=== PATIENT | female | born 1995 | race African-American/Black ===

== ENCOUNTER 2017-05-13 06:12 | Inpatient (IN) ==
[2017-05-13] MEDS ORDERED: ONDANSETRON 4 MG/2 ML VIAL IV PRN (06:33)
[2017-05-13] MEDS ORDERED: MEPERIDINE 50 MG/1 ML VIAL IV PRN (06:33)
[2017-05-13] MEDS ORDERED: ACETAMINOPHEN 325 MG TABLET PO PRN (06:33)
[2017-05-13] MEDS ORDERED: OXYTOCIN/LR 20 UNIT/1,000 ML BAG IV SCH (07:00)
[2017-05-13] MEDS ORDERED: LACTATED RINGERS 1,000 ML IV SCH (07:00)
[2017-05-13 07:05] LABS: Basophils % 0.4 % (0.0-0.8); Eosinophils # 0.1 10*3/uL (0.0-0.87); Eosinophils % 0.7 % (0.00-10.9); Hematocrit 33.6 VOL% (35.7-47.0); Immature Granulocytes % 0.7 %; Immature Granulocytes Absolute 0.05 #; Lymphocytes # 2.3 10*3/uL (1.4-4.0); Lymphocytes % 33.1 % (21.3-54.2); Mean Corpuscular HGB Conc 32.7 GM/DL (32-36); Mean Corpuscular Hemoglobin 31 PG (27-34); Mean Corpuscular Volume 93.1 FL (87-102); Mean Platelet Volume 10.2 FL (9.6-12.0); Monocytes # 0.5 10*3/uL (0.11-0.8); Monocytes % 7.5 % (1.7-12.7); Neutrophils % 57.6 % (38.7-73.9); Platelet Count 176 T/CUMM (130-400); Red Blood Count 3.61 MC/CUMM (3.8-5.5); Red Cell Distribution Width 13.1 % (9.3-17.3)
[2017-05-13] MEDS ORDERED: AMPICILLIN INJ 2,000 MG in SODIUM CHLORIDE 0.9% 100 ML IV ONE (07:15)
[2017-05-13] MEDS ORDERED: diphenhydrAMINE 50 MG/1 ML VIAL IV PRN ×2 (08:17)
[2017-05-13] MEDS ORDERED: CITRIC ACID/SODIUM CITRATE 30 ML UDCUP PO ONE (08:17)
[2017-05-13] MEDS ORDERED: LACTATED RINGERS 1,000 ML IV ONE (08:17)
[2017-05-13] MEDS ORDERED: hydrOXYzine HCL 25 MG/1 ML VIAL IM PRN (08:17)
[2017-05-13] MEDS ORDERED: ePHEDrine 50 MG/ML AMP IV PRN (08:17)
[2017-05-13] MEDS ORDERED: FAMOTIDINE 20 MG/2 ML VIAL IV ONE (08:17)
[2017-05-13] MEDS ORDERED: fentaNYL 2 MCG/ROPIV 0.2% EPID 150 ML EPIDURAL SCH (08:17)
[2017-05-13] MEDS ORDERED: PROMETHAZINE 25 MG/1 ML VIAL IM ONE (08:17)
--- NOTE | 2017-05-13 10:36 | OB/GYN History & Physical ---
History of Present Illness Chief complaint: In for induction of labor due to term . History of present illness: Ms. Lancaster is a 21 year old female who is a 2 para 1 living 1. Her ALYSON is 05/09/2017 for an estimated gestational age of 40 weeks and 4 days. The patient presents for elective induction of labor due to term . The risk and benefits of been thoroughly discussed with patient and significant other, plan of care has been discussed with Dr. Saenz and all parties are in agreement plan. The patient received care in [place] we saw her for the first time on yesterday. The patient states that her course has been uneventful. She had a previous vaginal delivery in [place] of a liveborn female infant that weighed 6 pounds and 3 ounces and she reported no complications with that . labs: She is O positive and antibodies are negative, RPR is nonreactive, hepatitis B is negative, rubella is immune, and GBS culture is positive. Review of systems is negative with exception of above. Patient received IV antibiotics prophylactically. Home Medications Medication Instructions Recorded Confirmed Type Albuterol Inhaler [Proventil 1 inhaler PO DAILY 05/13/17 05/13/17 History Inhaler] No122/Iron/Folic Acid 1 tablet PO DAILY 05/13/17 05/13/17 History [ Multi Tablet] Allergies Allergy/AdvReac Type Severity Reaction Status Date / Time latex Allergy Intermediate HIVES Verified 05/13/17 06:33 12 point system: reviewed and no additional remarkable complaints except as stated Medical,Surgical,& Family Hx - Medical History Medical History: noncontributory Neurology: No history of: Dementia HEENT: History of: Eye Problem (contacts) Reproductive: No history of: Ectopic , Complication - Surgical History Surgical History: noncontributory Reproductive Surgeries: Patient denies;: Section - Family History Family History: Reports;: Family Cancer (brother), Family Diabetes (mgm), Family Hypertension (mgm) - Social History Smoking Status: Never smoker Frequency of Alcohol Use: None Type of Drug Use: None Marital Status: Lives With:: Spouse Functional capacity: independent ambulation Exam [employer] - Constitutional Vitals: Vital Signs Temp Pulse Resp BP 05/13/17 06:29 97.8 F 55 L 20 98/62 General appearance: normal weight, no acute distress - Antepartum / Post Antepartum Exam Cervix - Dilatation: 5 cm upon admission Effacement: 80% effaced Station: -2 Rupture: Intact Presentation: Vertex Heart Rate: 140 Breast: bilateral: normal Abdomen obstetrics: Present: bowel sounds normal Vagina: Present: normal moisture, discharge Uterus exam: Present: enlarged - Respiratory Respiratory exam: Present: clear to auscultation bilaterally - Cardiovascular Cardiovascular exam: Present: regular rate and rhythm - GI/Abdominal GI/Abdominal exam: Present: normal bowel sounds, soft - Extremities Exam Extremities exam: Present: normal inspection - Back Exam Back exam: Present: normal inspection - Neurological Exam Neurological exam: Present: alert, oriented X3 - Psychiatric Psychiatric exam: Present: normal affect, normal mood - Skin Skin exam: Present: normal color, warm Assessment and Plan (1) Term Status: Acute Assessment and plan: Admit IV fluids IV Pitocin Artificial rupture membranes when appropriate Epidural anesthesia if desired Anticipate Current Visit: Yes (2) Active labor at term Status: Acute Assessment and plan: Same as above Current Visit: Yes Results - Labs CBC & BMP: 05/13/17 06:53
[2017-05-13] MEDS ORDERED: ACETAMINOPHEN/CODEINE 300-30 MG TABLET PO PRN (10:41)
--- NOTE | 2017-05-13 10:43 | Event Note ---
HPI: Ms. Lancaster is a 21-year-old female who presented to the labor department for elective induction of labor due to term . The risk and benefits were thoroughly discussed with this patient and significant other and plan of care was discussed with Dr. Saenz, all parties were in agreement plan. Stage I: The patient was admitted she received IV fluids and IV Pitocin per protocol. Artificial rupture membranes was performed with clear fluid noted. The patient progressed in labor with a CAT 1 tracing. She received an epidural for pain control. The patient had an uneventful course of labor. Stage II: The patient was complete complained of pressure and desire to push. She pushed for approximately 15 minutes after which time the infant's head was delivered, the mouth and nose suctioned on the perineum. The remainder the infant was delivered at 1024 for a viable male infant was noted. Apgars were 9 at 1 minute and 9 at 5 minutes. weight was 6 pounds and 15 ounces. A cord pH was obtained and sent to the lab. The was placed on the mom's abdomen for skin to skin bonding. Stage III: A spontaneous delivery of a Barrientos placenta with a three-vessel cord noted. The placenta was further examined appeared to be grossly intact. The vagina cervix was inspected with no tears or lacerations noted. Estimated blood loss was approximately 150 cc. At the time of dictation mother and baby are both in stable condition.
[2017-05-13 11:03] LABS: Cord Arterial Blood HCO3 23.8 MMOL/L
[2017-05-13 11:06] LABS: Cord Venous Blood PCO2 47.3 MMHG; Cord Venous Blood PO2 33.3
[2017-05-13] MEDS ORDERED: AMPICILLIN INJ 1,000 MG in SODIUM CHLORIDE 0.9% 100 ML IV SCH (11:30)
[2017-05-13 12:13] LABS: HIV Antigen/Antibody Result Nonreactive (Nonreactive)
--- NOTE | 2017-05-13 13:20 | Anesthesia Post-Op ---
Anesthesia Post OP - Post Ansesthetic Evaluation Patient seen in post op: Yes Resp: within normal limits
[2017-05-13] MEDS ORDERED: MEASLES/MUMPS/RUBELLA VACCINE 0.5 ML VIAL SUBCUT ONE (13:42)
[2017-05-13] MEDS ORDERED: HYDROCORTISONE 2.5% RECTAL CREAM 30 GM TUBE TOP PRN (13:42)
[2017-05-13] MEDS ORDERED: BISACODYL 10 MG SUPP RECTAL PRN (13:42)
[2017-05-13] MEDS ORDERED: BENZOCAINE 20%/MENTHOL 0.5% SPRAY 56 GM CAN TOP PRN (13:42)
[2017-05-13] MEDS ORDERED: LANOLIN 50% CREAM 0.3 OZ TUBE TOP PRN (13:42)
[2017-05-13] MEDS ORDERED: WITCH HAZEL PADS 100/JAR TOP PRN (13:42)
[2017-05-13] MEDS ORDERED: oxyCODONE/ACETAMINOPHEN 5-325 MG TABLET PO PRN (13:42)
[2017-05-13] MEDS ORDERED: RHO(D) IMMUNE GLOBULIN 300 MCG SYRINGE IM ONE (13:42)
[2017-05-13] MEDS ORDERED: DIPH/TET/ACEL PERT BOOSTER VACCINE 0.5 ML VIAL IM ONE (13:42)
--- NOTE | 2017-05-13 20:48 | Progress Note ---
Family Medicine PN Sub Interval history: day #1 Status post vaginal Lungs are clear cardiac exam benign, she Abdomen soft, uterus is nice and firm Extremities well with no limits neurologic grossly intact Status post vaginal We will continue with present therapy, possible discharge in a.m. Exam (Progress Note) - Constitutional Vitals: Period Temp Pulse Resp BP Sys/[place] Pulse Ox Last 24 Hr 97.7 F-98.3 F 55-67 18-20 98-124/62-73 98-100 Results - Labs CBC & BMP: 05/13/17 06:53 Quality Measures - VTE Contraindication to Pharmacological VTE Prophylaxis: Clinical assessment deems Pt at low risk, no prophalaxis needed
[2017-05-13] MEDS: DOCUSATE SODIUM 100 MG CAPSULE PO SCH (20:55)
[2017-05-14 07:00] LABS: Basophils # 0.1 10*3/uL (0.0-0.2); Basophils % 0.5 % (0.0-0.8); Eosinophils # 0.1 10*3/uL (0.0-0.87); Hematocrit 30.9 VOL% (35.7-47.0); Hemoglobin 10.6 GM/DL (12.0-16.0); Immature Granulocytes % 0.7 %; Immature Granulocytes Absolute 0.07 #; Lymphocytes # 2.7 10*3/uL (1.4-4.0); Lymphocytes % 27.6 % (21.3-54.2); Mean Corpuscular HGB Conc 34.3 GM/DL (32-36); Mean Corpuscular Hemoglobin 31 PG (27-34); Mean Corpuscular Volume 90.9 FL (87-102); Mean Platelet Volume 10.7 FL (9.6-12.0); Monocytes # 0.8 10*3/uL (0.11-0.8); Monocytes % 7.8 % (1.7-12.7); Neutrophils # 6.1 10*3/uL (1.4-7.4); Neutrophils % 62.4 % (38.7-73.9); Platelet Count 174 T/CUMM (130-400); Red Cell Distribution Width 12.9 % (9.3-17.3); White Blood Count 9.7 T/CUMM (4-12)
[2017-05-14] MEDS: IBUPROFEN 800 MG TABLET PO PRN ×2 (07:05→22:42)
[2017-05-14] MEDS: oxyCODONE/ACETAMINOPHEN 5-325 MG TABLET PO PRN ×2 (07:06→22:43)
[2017-05-14] MEDS: DOCUSATE SODIUM 100 MG CAPSULE PO SCH ×2 (08:56→20:17)
--- NOTE | 2017-05-14 09:13 | OB/GYN Progress Note ---
Assessment and Plan (1) Term Status: Acute Assessment and plan: Admit IV fluids IV Pitocin Artificial rupture membranes when appropriate Epidural anesthesia if desired Anticipate Current Visit: Yes (2) Active labor at term Status: Acute Assessment and plan: Same as above Current Visit: Yes (3) Vaginal delivery Status: Acute Assessment and plan: Initiate routine orders. 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 Bonding well with infant. Exam SPECIAL EFFECTS PERSON - Constitutional Vitals: Vital Signs Temp Pulse Resp BP Pulse Ox 05/14/17 07:17 98.4 F 61 18 105/66 98 05/14/17 04:00 99.5 F 69 18 115/74 99 05/14/17 02:00 20 05/14/17 00:00 98.4 F 79 18 105/76 99 05/13/17 20:00 98.3 F 67 18 110/64 99 05/13/17 17:37 20 05/13/17 16:00 18 05/13/17 15:24 98 F 64 18 121/72 98 05/13/17 14:00 55 L 20 124/73 98 05/13/17 13:30 97.7 F 56 L 20 113/72 100 General appearance: normal weight, no acute distress - Antepartum / Post Post Exam Breast: bilateral: normal Abdomen obstetrics: Present: bowel sounds normal Vagina: Present: discharge (Light lochia rubra) Uterus exam: Present: enlarged (Fundus firm and midline) Anus/Rectum: Present: normal perianal skin - Head Head exam: Present: normal inspection - Respiratory Respiratory exam: Present: clear to auscultation bilaterally - Cardiovascular Cardiovascular exam: Present: regular rate and rhythm - GI/Abdominal GI/Abdominal exam: Present: normal bowel sounds, soft - Extremities Exam Extremities exam: Present: normal inspection - Back Exam Back exam: Present: normal inspection - Neurological Exam Neurological exam: Present: alert, oriented X3 - Psychiatric Psychiatric exam: Present: normal affect, normal mood - Skin Skin exam: Present: normal color, warm Results - Labs CBC & BMP: 05/14/17 06:50
[2017-05-15 07:17] VITALS: BP 100/65
[2017-05-15] MEDS: DOCUSATE SODIUM 100 MG CAPSULE PO SCH (08:38)
--- NOTE | 2017-05-15 08:56 | Discharge Summary ---
Hospital Course - Hospital Course Hospital Course: Ms. Lancaster is a 21-year-old female who presented to the labor department for elective induction of labor due to term . She subsequently delivered a viable with no complications. She has followed a normal course and she has done well. Her bleeding is minimal with no odor. Her vital signs and lab values are stable. Her fundus is firm and midline. Her perineum is intact with no edema. She is voiding without difficulty. She is bonding well with her infant. She will be discharged home prescriptions for pain and a follow-up appointment in our office. Diagnosis - Discharge Diagnosis (1) Term Status: Acute (2) Active labor at term Status: Acute (3) Vaginal delivery Status: Acute Specialty Discharge - Follow Up or Referrals Follow up with: Susie Saenz MD [Physician] - (Follow-up in 6 weeks) Discharge Plan - Discharge Data Disposition: Disch To Home/Self Care Condition at Discharge: Stable Discharge Diet: advance to your usual diet, regular diet Activity: resume usual activities as tolerated Hygiene: no restrictions Weight Bearing at Discharge: weight bear as tolerated Driving: no restrictions Contact your physician if you experience:: fever over 101, pain uncontrolled by pain medications - Discharge Medications New Acetamin/Codeine 300-30 Tab [Tylenol/Codeine #3] 2 tablet PO Q4H PRN #30 tablet PRN Reason: Pain Mild (1-3) Ibuprofen Tab [Motrin Tab] 800 mg PO Q6H PRN #30 tablet PRN Reason: Pain Moderate (4-7) No Action No122/Iron/Folic Acid [ Multi Tablet] 1 tablet PO DAILY Albuterol Inhaler [Proventil Inhaler] 1 inhaler PO DAILY - Follow Up or Referral - Forms/Instructions Exam - Constitutional Vitals: Period Temp Pulse Resp BP Sys/[place] Pulse Ox Last 24 Hr 97.6 F-97.9 F 56-93 16-20 97-122/65-73 98-100 General appearance: no acute distress - Head Head exam: Present: normal inspection - Respiratory Respiratory exam: Present: clear to auscultation bilaterally - Cardiovascular Cardiovascular exam: Present: regular rate and rhythm - GI/Abdominal GI/Abdominal exam: Present: normal bowel sounds, soft - Extremities Exam Extremities exam: Present: normal inspection - Neurological Exam Neurological exam: Present: alert, oriented X3 - Psychiatric Psychiatric exam: Present: normal affect, normal mood - Skin Skin exam: Present: normal color, warm DS: Provider Date of admission: 05/13/17 06:33 Primary care physician: . No PCP Attending physician on admission: Susie Saenz MD Consults: 05/13/17 06:33 Consult to Anesthesiology [CONS] Routine Consulting Provider: Reason for Anesthesiology: Epidural Consult Comment: Epidural for pain managment 05/13/17 13:42 Consult to Waste Duster [CONS] Routine Consult Waste Duster: Breast Feeding Discharging clinician: Ava Umanzor CNM Expected date of discharge: 05/15/17
== END 2017-05-15 11:15 | disposition home or self-care (01) | DRG 560 ==
LOC: EDBD → N.LDOUT 06:12 → N.LD 06:18 → N.OB 13:25
PROVIDERS: ADMIT Obstetrics & Gynecology; ATTEND Obstetrics & Gynecology